=== PATIENT | female | born 1955 | race African-American/Black ===

== ENCOUNTER 2016-12-04 16:26 | Inpatient (IN) | payer OTHER ==
[2016-12-04] VITALS (133 sets, daily range): BP systolic 173–179; BP diastolic 88–97; PULSE 93–109; TEMP 97.5–97.7; O2SAT 96–100
[~2016-12-04] VITALS: Ht 147.3 cm; Wt 47.1 kg
[2016-12-05] VITALS (7 sets, daily range): BP systolic 158–184; BP diastolic 63–91; PULSE 92–105; TEMP 97.8–98.4
[2016-12-05 07:36] LABS: HEMOGLOBIN 12.4 g/dl (12.5-16.0); MEAN CELL VOLUME 82 fl (80.0-100.0); MEAN CORPUSCULAR HEMOGLOBIN 28 pg (27.0-31.0); MEAN CORPUSCULAR HGB CONC 34 g/dl (33.0-37.0); PLATELET COUNT 292 K/mm3 (130-400); RED BLOOD COUNT 4.51 M/mm3 (4.10-5.30); REDCELL DISTRIBUTION WIDTH-CV 14.9 % (11.5-14.5)
[2016-12-05 07:55] LABS: ADJUSTED CALCIUM 10.1 mg/dL (8.4-10.2); ALBUMIN 3.7 gm/dL (3.5-5.0); BILIRUBIN,TOTAL 0.7 mg/dL (0.0-1.0); CALCIUM 9.9 mg/dL (8.4-10.2); CREATININE, serum 1.96 mg/dL (0.52-1.25); POTASSIUM 4.5 mmol/L (3.4-5.0); TOTAL PROTEIN 6.9 gm/dL (6.4-8.2)
[2016-12-05 07:57] LABS: WHITE BLOOD COUNT 28.5 K/mm3 (4.8-10.8)
[2016-12-05 08:17] LABS: TROPONIN-I 0.227 ng/mL (0.000-0.034)
[2016-12-06] VITALS (356 sets, daily range): BP systolic 117–192; BP diastolic 75–117; PULSE 70–141; TEMP 98.1–98.6; O2SAT 91–100
[2016-12-06 08:21] LABS: INR 1.1 (0.8-3.0); PROTHROMBIN TIME 12.3 SECONDS (9.7-12.8)
[2016-12-06 08:31] LABS: CALCIUM 9.6 mg/dL (8.4-10.2); CREATININE, serum 1.66 mg/dL (0.52-1.25)
[2016-12-07] VITALS (361 sets, daily range): BP systolic 98–174; BP diastolic 61–90; PULSE 71–82; TEMP 98.4–98.6; O2SAT 78–100
[2016-12-07] MEDS ORDERED: CAPOTEN 12.512.5 MG PO (11:57)
[2016-12-07] MEDS ORDERED: DIOVAN 40MG40 MG PO (11:58)
[2016-12-07] MEDS ORDERED: PACERONE400 MG PO (12:00)
[2016-12-07] MEDS ORDERED: TOPROL XL 25MG25 MG PO (12:01)
[2016-12-07 13:03] LABS: HEMATOCRIT 37.9 % (37.0-47.0); HEMOGLOBIN 12.3 g/dl (12.5-16.0); MEAN CELL VOLUME 84 fl (80.0-100.0); MEAN CORPUSCULAR HEMOGLOBIN 27 pg (27.0-31.0); MEAN CORPUSCULAR HGB CONC 33 g/dl (33.0-37.0); MEAN PLATELET VOLUME 10.8 fl (7.4-10.4); PLATELET COUNT 249 K/mm3 (130-400); RED BLOOD COUNT 4.51 M/mm3 (4.10-5.30); REDCELL DISTRIBUTION WIDTH-CV 14.5 % (11.5-14.5); WHITE BLOOD COUNT 12.2 K/mm3 (4.8-10.8)
[2016-12-07 13:12] LABS: CALCIUM 8.8 mg/dL (8.4-10.2); CREATININE, serum 1.52 mg/dL (0.52-1.25); POTASSIUM 3.8 mmol/L (3.4-5.0)
== END 2016-12-07 13:20 | disposition home or self-care (01) | DRG 287 ==
LOC: MEDICAL 16:26 → ICU 16:26 → MEDICAL 20:22 → ICU 12-06 12:45
PROVIDERS: Internal Medicine Interventional Cardiology
PROC: 4A023N8 Measurement of Cardiac Sampling and Pressure, Bilateral, Percutaneous Approach (ICD-10-PCS; principal; 2016-12-06)
PROC: B2111ZZ Fluoroscopy of Multiple Coronary Arteries using Low Osmolar Contrast (ICD-10-PCS; 2016-12-06)
PROC: B2151ZZ Fluoroscopy of Left Heart using Low Osmolar Contrast (ICD-10-PCS; 2016-12-06)
DX: I11.0 Hypertensive heart disease with heart failure (principal); I50.23 Acute on chronic systolic (congestive) heart failure; I42.9 Cardiomyopathy, unspecified; I48.91 Unspecified atrial fibrillation; F17.210 Nicotine dependence, cigarettes, uncomplicated
CPT/HCPCS: C1760; C1894; J0282; J2250; J3010; J3370; J7050; J7060; J7512; Q9967

== ENCOUNTER 2022-04-06 08:00 | Outpatient (RCR) | payer OTHER ==
[2022-04-05 08:49] VITALS: BP 115/69; PULSE 113; TEMP 97.8
--- NOTE | 2022-04-05 09:15 | NUR ---
Pt tolerated IM med without issue. She is assisted out to elevator and to meet friend who drove her here by wheelchair.
[~2022-04-06] VITALS: Ht 152.4 cm; Wt 59.1 kg
[~2022-04-06 08:00] MED LIST: ALDACTONE 25MG25 M1 PO; ASPIRIN E.C. 8181 MG PO; B-121000 MCG PO; CAPOTEN 12.512.5 MG PO; DIOVAN 40MG40 MG PO; ENTRESTO 97 MG1 EACH PO; FERROUS SU325 MG/TAB PO; JARDIANCE10 PO; LASIX 20MG TABL20 MG PO; LOPRESSOR 225 MG/TAB PO; NATURE'S BLEND100 M2 PO; PACERONE400 MG PO; PROTONIX 40MG T40 MG PO; ROCEPHIN VIA1 G/VIAL IM; TOPROL XL 25MG25 MG PO; VITAMIND3 5000 PO; ZEMPLAR1 MCG PO; ZITHROMAX Z PA250 MG PO
[2022-04-06 08:10] VITALS: BP 107/73; PULSE 116; TEMP 97.9
--- NOTE | 2022-04-06 08:45 | NUR ---
Pt assisted out of dept by wheelchair to meet her friend/ride. No concerns at time of departure.
== END 2022-04-06 08:46 | disposition home or self-care (01) ==
LOC: EUO 08:00
DX: R78.81 Bacteremia (principal)
CPT/HCPCS: J0696